=== PATIENT | female | born 1985 | race Caucasian/White ===

== ENCOUNTER 2016-09-13 14:29 | Emergency (ER) | payer SELFPAY ==
--- NOTE | 2016-09-13 15:03 | Emergency Department Report ---
Chief Complaint: Headache Stated Complaint: LIGHT HEADED/HEAD PRESSURE/PAIN Time Seen by Provider: 09/13/16 14:59 - HPI History of Present Illness: PT states on the way to work, she developed head pressure, lightheadedness, and anxiety. PT states she has felt this way before but today her symptoms seemed worse. PT has a hx of htn but it is currently not being treated because the medication she was prescribed gave her palpitations. - ROS Review of Systems: - cp - palpitations + lightheadedness + priest - Exam Physical Exam: Morbidly obese female no acute resp distress no focal weakness steady gait MSE screening note: Focused history and physical exam performed. Due to findings the following was ordered: ct, labs ED Disposition for MSE Condition: Stable
[2016-09-13 15:28] LABS: Basophils % (Auto) 0.7 % (0.0-1.8); Eosinophils % (Auto) 0.3 % (0.0-4.3); Hematocrit 40.9 % (30.3-42.9); Hemoglobin 13.2 gm/dl (10.1-14.3); Mean Corpuscular HGB Conc 32 % (30-34); Mean Corpuscular Hemoglobin 27 pg (28-32); Mean Corpuscular Volume 84 fl (79-97); Platelet Count 245 K/mm3 (140-440); Red Blood Count 4.88 M/mm3 (3.65-5.03); Red Cell Distribution Width 14.9 % (13.2-15.2); White Blood Count 8.6 K/mm3 (4.5-11.0)
[2016-09-13 15:48] LABS: Anion Gap 16 mmol/L; BUN/Creatinine Ratio 11.42; Blood Urea Nitrogen 8 mg/dL (7-17); Calcium 8.9 mg/dL (8.4-10.2); Carbon Dioxide 27 mmol/L (22-30); Chloride 102.9 mmol/L (98-107); Glucose 119 mg/dL (65-100); Potassium 3.9 mmol/L (3.6-5.0); Sodium 142 mmol/L (137-145)
--- NOTE | 2016-09-13 16:44 | Cat Scan Report ---
CT HEAD WITHOUT CONTRAST INDICATION: Lightheaded, hypertensive. COMPARISON: None similar. FINDINGS: Noncontrast head CT demonstrates normal ventricles and sulci without acute or recent infarct, hemorrhage, mass effect or midline shift. No abnormal extra-axial fluid collections. Posterior fossa structures and basilar cisterns appear within normal limits. Symmetric eye globes. Rightward nasal septal deviation. Left posterior ethmoid air cell mucosal thickening. Clear remainder imaged paranasal sinuses and left mastoid air cells. Right mastoid tip not well pneumatized. Approximately 3.3 x 2 cm enlarged adenoids may be directly visualized. Intact calvarium. Normal overlying scalp soft tissues. CONCLUSION: No acute intracranial CT abnormality with few other findings, as described. Thank you for the opportunity to participate in this patient's care.
[2016-09-13 20:56] VITALS: BP 148/93
== END 2016-09-13 22:25 | disposition left against medical advice (07) ==
LOC: ED 14:29
DX: R42 Dizziness and giddiness (principal); R51 Headache; Z53.21 Procedure and treatment not carried out due to patient leaving prior to being seen by health care provider
CPT/HCPCS: 36415; 70450; 80048; 85025

== ENCOUNTER 2017-07-16 14:11 | Emergency (ER) | payer SELFPAY ==
[2017-07-16 14:58] LABS: Basophils # (Auto) 0.1 K/mm3 (0.0-0.1); Basophils % (Auto) 0.5 % (0.0-1.8); Eosinophils # (Auto) 0.1 K/mm3 (0.0-0.4); Eosinophils % (Auto) 0.5 % (0.0-4.3); Hematocrit 38.8 % (30.3-42.9); Hemoglobin 12.5 gm/dl (10.1-14.3); Lymphocytes # (Auto) 2.7 K/mm3 (1.2-5.4); Lymphocytes % (Auto) 27.9 % (13.4-35.0); Mean Corpuscular HGB Conc 32 % (30-34); Mean Corpuscular Hemoglobin 27 pg (28-32); Mean Corpuscular Volume 84 fl (79-97); Monocytes # (Auto) 0.7 K/mm3 (0.0-0.8); Platelet Count 269 K/mm3 (140-440); Red Blood Count 4.64 M/mm3 (3.65-5.03); Red Cell Distribution Width 14.3 % (13.2-15.2)
[2017-07-16 15:09] LABS: BUN/Creatinine Ratio 12; Blood Urea Nitrogen 7 mg/dL (7-17); Calcium 8.6 mg/dL (8.4-10.2); Hemolysis Index 2
[2017-07-16 15:48] LABS: Bilirubin,Urine NEG (Negative); Blood,Urine LG (Negative); Color,Urine Yellow (Yellow); Mucus,Urine 1+ /HPF
[2017-07-16 15:49] LABS: RBC,Urine > 182.0 /HPF (0.0-6.0)
[2017-07-16 15:50] LABS: HCG Qualitative,Urine Negative (Negative)
--- NOTE | 2017-07-16 16:04 | Emergency Department Report ---
ED General Adult HPI - General Chief complaint: Anxiety Stated complaint: ANXIETY/DEVIKA Time Seen by Provider: 07/16/17 15:20 Source: patient, EMS Mode of arrival: Ambulatory Limitations: No Limitations - History of Present Illness Initial comments: 31-year-old female history of hypertension here for evaluation of right upper quadrant and epigastric pain she then said he had a panic attack with hyperventilation that was hurting into her right chest here for evaluation of right-sided chest pain with breathing with right upper quadrant and epigastric pain, no exertiohnal cp no fever, here for eval, no radiation, no calf pain or swelling, no risks dvt/pe -: Gradual, days(s) Radiation: non-radiation Quality: burning Consistency: intermittent, now resolved Worsens with: eating, movement Associated Symptoms: denies other symptoms. denies: confusion, chest pain, cough, diaphoresis, fever/chills, headaches, loss of appetite, malaise, nausea/ vomiting, rash, seizure, shortness of breath, syncope, weakness - Related Data Home Medications Medication Instructions Recorded Confirmed Last Taken Hydrochlorothiazide 12.5 mg PO DAILY 07/16/17 07/16/17 Unknown Previous Rx's Medication Instructions Recorded Last Taken Type Omeprazole 20 mg PO DAILY #30 tablet. 07/16/17 Unknown Rx Allergies Allergy/AdvReac Type Severity Reaction Status Date / Time No Known Allergies Allergy Verified 03/14/16 16:42 ED Review of Systems ROS: Stated complaint: ANXIETY/DEVIKA Other details as noted in HPI Comment: All other systems reviewed and negative Constitutional: denies: diaphoresis, fever, malaise Eyes: denies: eye discharge, vision change ENT: denies: dental pain, hearing loss, epistaxis Respiratory: denies: shortness of breath, SOB with exertion, SOB at rest, stridor Cardiovascular: denies: chest pain, palpitations, dyspnea on exertion, orthopnea , edema, syncope, paroxysmal nocturnal dyspnea Gastrointestinal: abdominal pain, other (epigastric right upper quadrant pain) Skin: denies: rash, lesions, change in hair/nails, pruritus Neurological: denies: numbness, paresthesias, confusion, abnormal gait, vertigo Hematological/Lymphatic: denies: easy bruising ED Past Medical Hx - Past Medical History Hx Hypertension: Yes Additional medical history: anxiety, chest pain, Headaches - Surgical History Additional Surgical History: x2 - Social History Smoking Status: Never Smoker Substance Use Type: None - Medications Home Medications: Home Medications Medication Instructions Recorded Confirmed Last Taken Type Hydrochlorothiazide 12.5 mg PO DAILY 07/16/17 07/16/17 Unknown History Omeprazole 20 mg PO DAILY #30 tablet. 07/16/17 Unknown Rx ED Physical Exam - General Limitations: No Limitations General appearance: alert, anxious - Head Head exam: Present: atraumatic, normocephalic - Eye Eye exam: Present: PERRL, EOMI - ENT ENT exam: Present: normal exam, normal orophraynx, mucous membranes moist. Absent: mucous membranes dry - Neck Neck exam: Present: normal inspection. Absent: tenderness, meningismus - Respiratory Respiratory exam: Present: normal lung sounds bilaterally. Absent: respiratory distress, wheezes, rales, rhonchi, stridor, chest wall tenderness, accessory muscle use, prolonged expiratory (pulses equal bilaterally) - Cardiovascular Cardiovascular Exam: Present: regular rate, normal rhythm, normal heart sounds. Absent: irregular rhythm, rubs, gallop - GI/Abdominal GI/Abdominal exam: Present: soft. Absent: distended, tenderness, guarding, rebound, rigid, mass, bruit, pulsatile mass - Extremities Exam Extremities exam: Present: normal inspection, normal capillary refill. Absent: tenderness, pedal edema, joint swelling, calf tenderness - Back Exam Back exam: Present: normal inspection. Absent: CVA tenderness (L), muscle spasm , paraspinal tenderness, vertebral tenderness - Neurological Exam Neurological exam: Present: alert, oriented X3, CN II-XII intact. Absent: motor sensory deficit ED Course Vital Signs 07/16/17 07/16/17 07/16/17 14:19 15:36 16:02 Temperature 98.4 F Pulse Rate 89 83 Respiratory 20 18 18 Rate Blood Pressure 171/87 Blood Pressure 130/74 [Left] O2 Sat by Pulse 97 97 97 Oximetry 07/16/17 07/16/17 17:05 18:23 Temperature Pulse Rate 97 H Respiratory 17 18 Rate Blood Pressure Blood Pressure 120/59 115/57 [Left] O2 Sat by Pulse 98 95 Oximetry ED Medical Decision Making - Lab Data Result diagrams: 07/16/17 14:44 07/16/17 14:44 - EKG Data -: EKG Interpreted by Me - EKG Data When compared to previous EKG there are: no significant change 07/16/17 18:42 Sinus rhythm no acute ST changes - Radiology Data Radiology results: report reviewed - Medical Decision Making Patient with negative troponin and nondiagnostic EKG is improved in the ED, negative d-dimer laboratory studies unremarkable nlLFTs negative lipase, no acute abdomen at this time is pain free and DVT PE protocol negative, low heart score=1 stable for outpatient follow-up Critical care attestation.: If time is entered above; I have spent that time in minutes in the direct care of this critically ill patient, excluding procedure time. ED Disposition Clinical Impression: Atypical chest pain, Epigastric abdominal pain Disposition: TO HOME OR SELFCARE Is pt being admited?: No Condition: Stable Instructions: Chest Pain (ED), Abdominal Pain (ED) Additional Instructions: see the doctor listed, return if new or alarming symptoms Prescriptions: Omeprazole 20 mg PO DAILY #30 tablet. Referrals: PRIMARY CARE, [Primary Care Provider] - 3-5 Days Time of Disposition: 18:46
[2017-07-16 16:40] LABS: Albumin 3.6 g/dL (3.9-5); Bilirubin,Direct 0.3 mg/dL (0-0.2)
--- NOTE | 2017-07-16 17:25 | XRay Report ---
FINAL REPORT EXAM: XR CHEST ROUTINE 2V HISTORY: Shortness of breath TECHNIQUE: 2 view examination of the chest PRIORS: None FINDINGS: Limited examination due to prominent soft tissue attenuation. There is no visible pulmonary consolidation, pleural effusion, or pneumothorax. Cardiac silhouette size is normal without vascular congestion. No visible acute displaced fracture in the regional skeleton. IMPRESSION: No evidence of acute cardiopulmonary disease
[2017-07-16 18:24] VITALS: BP 115/57
== END 2017-07-16 18:56 | disposition home or self-care (01) ==
LOC: ED 14:11
DX: R07.89 Other chest pain (principal); R10.13 Epigastric pain; R10.11 Right upper quadrant pain; I10 Essential (primary) hypertension; F41.9 Anxiety disorder, unspecified; R06.00 Dyspnea, unspecified
CPT/HCPCS: 36415; 71046; 80048; 80074; 81001; 81025; 83690; 83880; 84484; 85025; 93005; 93010